=== PATIENT | female | born 1945 | race Caucasian/White ===

== ENCOUNTER 2017-02-26 13:52 | Emergency (ER) | payer MEDICARE ==
[2017-02-26 14:01] VITALS: TEMP 98.1
--- NOTE | 2017-02-26 14:32 | C.PDOC ---
History Of Present Illness 71-year-old female, presents to the emergency department with complaints of epigastric abdominal pain that started yesterday. Patient states she drinks coffee everyday. Pain is intermittent in nature, non-radiating and described as a burning sensation. Denies nausea/vomiting, fevers, chills, chest pain, shortness of breath, back pain, dizziness, diaphoresis, leg swelling, or any other associated symptoms. No other complaints at this time. Time Seen by Provider: 02/26/17 14:09 Chief Complaint (Nursing): Abdominal Pain History Per: Patient History/Exam Limitations: no limitations Onset/Duration Of Symptoms: Days (1) Current Symptoms Are (Timing): Still Present Severity: Moderate Location Of Pain/Discomfort: Epigastric Past Medical History Reviewed: Historical Data, Nursing Documentation, Vital Signs Vital Signs: Last Vital Signs Temp 98.1 F 02/26/17 13:57 Pulse 84 02/26/17 15:49 Resp 16 02/26/17 15:49 BP 138/86 02/26/17 15:49 Pulse Ox 97 02/26/17 15:49 - Medical History PMH: HTN Family History: States: No Known Family Hx - Social History Hx Alcohol Use: No Hx Substance Use: No - Immunization History Hx Tetanus Toxoid Vaccination: No Hx Influenza Vaccination: No Hx Pneumococcal Vaccination: No Review Of Systems Except As Marked, All Systems Reviewed And Found Negative. Constitutional: Negative for: Fever Cardiovascular: Negative for: Chest Pain, Palpitations, Edema Respiratory: Negative for: Shortness of Breath Gastrointestinal: Positive for: Abdominal Pain. Negative for: Nausea, Vomiting Musculoskeletal: Negative for: Back Pain Physical Exam - Physical Exam Appears: Non-toxic, No Acute Distress Skin: Warm, Dry, No Rash Head: Atraumatic, Normacephalic Eye(s): bilateral: Normal Inspection, PERRL, EOMI Nose: Normal Oral Mucosa: Moist Lips: Normal Appearing Neck: Normal ROM Cardiovascular: Rhythm Regular, No Murmur Respiratory: Normal Breath Sounds, No Accessory Muscle Use Gastrointestinal/Abdominal: Soft, No Tenderness Extremity: Normal ROM Neurological/Psych: Oriented x3, Normal Speech ED Course And Treatment - Laboratory Results Result Diagrams: 02/26/17 14:47 02/26/17 14:47 Lab Interpretation: No Acute Changes ECG: Interpreted By Me ECG Rhythm: Sinus Rhythm, ST/T Changes ECG Interpretation: Abnormal (lvh, nonspecific ST and T wave abnormality) Rate From EC O2 Sat by Pulse Oximetry: 98 Pulse Ox Interpretation: Normal - Radiology CXR: Interpreted by Me CXR Interpretation: Yes: No Acute Disease, Other (mild venous congestion) Progress Note: EKG and cardiac workup ordered. Patient given Maalox and Protonix. Reassessment Condition: Improved (on re-evaluation epigastric pain completely resolved.) Disposition Counseled Patient/Family Regarding: Studies Performed, Diagnosis, Need For Followup, Rx Given - Disposition Referrals: Santosh Cotter MD [Staff Provider] - Disposition: HOME/ ROUTINE Disposition Time: 15:39 Condition: STABLE Additional Instructions: FOLLOW UP WITH PMD IN 1-2 DAYS FOR RE-EVALUATION. IF SYMPTOMS GET WORSE OR ANY NEW CONCERNING SYMPTOMS DEVELOP RETURN TO ED. Prescriptions: Famotidine [Pepcid] 20 mg PO BID #20 tab Instructions: Gastritis (ED) Forms: General Discharge Instructions - Clinical Impression Clinical Impression: Gastritis - Scribe Statement The provider has reviewed the documentation as recorded by the Carlotaibcarlos Johnson All medical record entries made by the Scribe were at my direction and personally dictated by me. I have reviewed the chart and agree that the record accurately reflects my personal performance of the history, physical exam, medical decision making, and the department course for this patient. I have also personally directed, reviewed, and agree with the discharge instructions and disposition.
[2017-02-26] MEDS ORDERED: Alum-Mag Hydrox-Simethicone Susp (30 mL) PO STA (14:34)
[2017-02-26] MEDS ORDERED: Aluminum Hydroxide/Magnesium Hydroxide Susp (30 mL) ONE (14:49)
[2017-02-26 15:00] LABS: CHLORIDE 99 mmol/L (98-107)
[2017-02-26 15:01] LABS: POTASSIUM 4.3 mmol/L (3.6-5.2); SODIUM 136 mmol/L (132-148)
[2017-02-26 15:03] LABS: ALB/GLOB RATIO 1.2 (1.0-2.1); ALKALINE PHOSPHATASE 44 U/L (38-126); ALT/SGPT 30 U/L (9-52); AST/SGOT 40 U/L (14-36); BILIRUBIN,TOTAL 0.7 mg/dL (0.2-1.3); BLOOD UREA NITROGEN 15 mg/dL (7-17); CARBON DIOXIDE 29 mmol/L (22-30); GFR AFRICAN-AMERICAN > 60; TOTAL PROTEIN 7.3 g/dL (6.3-8.3)
[2017-02-26 15:04] LABS: CALCIUM 10.7 mg/dl (8.6-10.4); GLUCOSE,RANDOM 110 mg/dL (65-105)
[2017-02-26 15:08] LABS: BASO % 0.4 % (0.0-2.0); EOS # 0.1 K/uL (0.0-0.7); EOS % 1.1 % (0.0-4.0); HEMATOCRIT 41.3 % (34.0-47.0); LYMPH # 2.3 K/uL (1.0-4.3); MEAN CORPUSCULAR HEMOGLOBIN 28.1 pg (27.0-31.0); MEAN CORPUSCULAR HGB CONC 33.1 g/dL (33.0-37.0); MEAN PLATELET VOLUME 8.5 fL (7.2-11.7); MONO # 0.5 K/uL (0.0-0.8); MONO % 7.5 % (0.0-10.0); NRBC % 0.1 % (0.0-2.0); RED CELL DISTRIBUTION WIDTH 13.8 % (11.5-14.5)
--- NOTE | 2017-02-26 15:23 | RAD ---
PROCEDURE: CHEST RADIOGRAPH, 1 VIEW HISTORY: chest pain COMPARISON: None available. FINDINGS: LUNGS: Mild venous congestion. PLEURA: No pneumothorax or pleural fluid seen. CARDIOVASCULAR: Calcification at the aortic knob. OSSEOUS STRUCTURES: No significant abnormalities. VISUALIZED UPPER ABDOMEN: Normal. OTHER FINDINGS: None. IMPRESSION: Mild venous congestion.
[2017-02-26 15:50] VITALS: BP 138/86; PULSE 84; RESP 16
[2017-02-26 18:09] VITALS: O2SAT 98
--- NOTE | 2017-02-27 18:29 | CARD ---
APPROVED REPORT EKG Measurement Heart [id number] <Conclusion> Normal sinus rhythm Voltage criteria for left ventricular hypertrophy Nonspecific ST and T wave abnormality Abnormal ECG
== END 2017-02-26 15:49 | disposition home or self-care (01) ==
LOC: C.ER 13:52
DX: K29.70 Gastritis, unspecified, without bleeding (principal)
CPT/HCPCS: 71010; 80053; 84484; 85025; 93005; 96374; 99283; C9113

== ENCOUNTER 2018-04-12 07:47 | Day surgery (SDC) | payer MEDICARE ==
[2018-04-11 13:59] VITALS: BMI 26.6
[2018-04-12] MEDS ORDERED: Lidocaine Hydrochloride 5 ML INJ ONE (10:29)
[2018-04-12] MEDS ORDERED: Propofol 10 mg/ml Inj (20 ML) ONE (10:29)
[2018-04-12 11:03] VITALS: O2SAT 100
[2018-04-12 11:15] VITALS: TEMP 97.8
[2018-04-12 11:48] VITALS: BP 139/83; PULSE 78; RESP 13
== END 2018-04-12 11:45 | disposition home or self-care (01) ==
LOC: C.ENDO 07:47
PROVIDERS: ATTEND Internal Medicine Gastroenterology
DX: K57.90 Diverticulosis of intestine, part unspecified, without perforation or abscess without bleeding (principal); K64.8 Other hemorrhoids
CPT/HCPCS: 45378; J2704

== ENCOUNTER 2019-02-04 12:26 | Outpatient (CLI) | payer MEDICARE | END 2019-02-04 12:27 | disposition home or self-care (01) | LOC: C.LAB 12:26 | DX: E66.3 Overweight (principal); R73.09 Other abnormal glucose; E21.0 Primary hyperparathyroidism ==